=== PATIENT | male | born 1985 | race Caucasian/White ===

== ENCOUNTER 2025-02-08 23:51 | Emergency (ER) | payer OTHER, SELFPAY ==
[2025-02-09] VITALS: BP 152/112
[2025-02-09 00:10] VITALS: BP 142/82
--- NOTE | 2025-02-09 00:20 | ED.GENMED ---
History of Present Illness
<Moustapha Deutsch MD, Resident - Last Filed: 02/09/25 03:36>
General
Chief Complaint: Chest Pain
Time Seen by Provider: 02/09/25 00:04
History of Present Illness
History of Present Illness:
39 yo M no significant PMH presenting with chest pain. It is of pressure quality. First started in April/May 2024, that he noticed after his son 'jumped on him'. and it's been intermittent and the progressively becoming constant since then.
nonradiating pain. does not spread to jaw. does not spread to his back. no nausea/vomiting. pressure like quality. over past 3 weeks he feels that it has been getting worse. no relationship to exertion but notes possible relationship to when he
stretches his arm, he drives with left hand
he reports some dyspnea, no palpitations. no abdominal pain, no headaches. no focal weaknes or numbness.
family hx: father had NE at age 50 and 7 stents total
social hx unremarkable
denies any recent immobilization, travel, known history of malignancy
no fevers/chills
no hemoptysis
Past History
<Moustapha Deutsch MD, Resident - Last Filed: 02/09/25 03:36>
Social History
Tobacco: Non-smoker
Alcohol: Occasional
Drug: None
Review of Systems
<Moustapha Deutsch MD, Resident - Last Filed: 02/09/25 03:36>
Review of Systems
Constitutional: Reports no symptoms
EENT: Reports no symptoms
Respiratory: Reports no symptoms
Cardiac: Reports chest pain
ABD/GI: Reports no symptoms
: Reports no symptoms
Musculoskeletal: Reports no symptoms
Neurological: Reports no symptoms
Phy Exam
<Moustapha Deutsch MD, Resident - Last Filed: 02/09/25 03:36>
Physical Exam
Physical Exam:
VS BP 152/112; HR 81; T 98.7
General: no acute distress
CV: no murmurs, pain is reproducible when he stretches left arm out/backward
Pulm: CTAB
GI: + bowel sounds, no tenderness to palpation
Neuro: nonfocal
MSK: no lower extremity edema
Scores
<Moustapha Deutsch MD, Resident - Last Filed: 02/09/25 03:36>
Heart Score for Chest Pain Patients
STEMI patient?: No
History: Slightly or Non-Suspicious
ECG: Normal
Age: </= 45 years
Risk Factors: 1 or 2 Risk Factors
Troponin: </= Normal Limit
Heart Score for Chest Pain Patients: 1
Heart Score Risk: 2.5% MACE over next 6 weeks
Course
<Moustapha Deutsch MD, Resident - Last Filed: 02/09/25 03:36>
Orders/Labs/Results
Orders:
Orders
02/08/25 23:52
EKG [Electrocardiogram (*1)] Urgent
Reason for Study: Chest Pain
EKG- Treatment ONCE
02/09/25 00:27
CR Chest - 2 Views Urgent
Comment:
Reason For Exam: chest pain
02/09/25 00:33
Complete Blood Count/With Diff Urgent
Comprehensive Metabolic Panel Urgent
Troponin I Urgent
02/09/25 01:07
Ketorolac [Toradol] 15 mg IV NOW STA
02/09/25 02:11
Electrocardiogram (*1) Urgent
Reason for Study: Chest Pain
EKG- Treatment ONCE
02/09/25 02:26
D-Dimer Urgent
02/09/25 02:27
TSH Reflex To Free T4 Urgent
Troponin I Urgent
Abnormal Lab Results
02/09/25
00:33
Abs Immat Gran (auto) 0.1 H 10^3/uL
(0-0.05)
Absolute Lymphs (auto) 4.0 H 10^3/uL
(1.2-3.4)
ALT 62 H U/L
(0-50)
02/09/25 00:33
02/09/25 00:33
Vital Signs
Initial and Last Documented VS:
Initial Vital Signs
Temp Pulse Resp BP Pulse Ox
98.7 F 81 16 152/112 98
02/09/25 00:00 02/09/25 00:00 02/09/25 00:00 02/09/25 00:00 02/09/25 00:00
Last Documented Vital Signs
Temp Pulse Resp BP Pulse Ox
98.7 F 75 24 135/92 95
02/09/25 00:00 02/09/25 03:00 02/09/25 03:00 02/09/25 03:00 02/09/25 03:00
<Miguel Lopez, DO - Last Filed: 02/09/25 01:09>
Orders/Labs/Results
Orders:
Orders
02/08/25 23:52
EKG [Electrocardiogram (*1)] Urgent
Reason for Study: Chest Pain
EKG- Treatment ONCE
02/09/25 00:27
CR Chest - 2 Views Urgent
Comment:
Reason For Exam: chest pain
02/09/25 00:33
Complete Blood Count/With Diff Urgent
Comprehensive Metabolic Panel Urgent
Troponin I Urgent
02/09/25 01:07
Ketorolac [Toradol] 15 mg IV NOW STA
02/09/25 02:11
Electrocardiogram (*1) Urgent
Reason for Study: Chest Pain
EKG- Treatment ONCE
02/09/25 02:26
D-Dimer Urgent
02/09/25 02:27
TSH Reflex To Free T4 Urgent
Troponin I Urgent
Abnormal Lab Results
02/09/25
00:33
Abs Immat Gran (auto) 0.1 H 10^3/uL
(0-0.05)
Absolute Lymphs (auto) 4.0 H 10^3/uL
(1.2-3.4)
ALT 62 H U/L
(0-50)
02/09/25 00:33
02/09/25 00:33
Vital Signs
Initial and Last Documented VS:
Initial Vital Signs
Temp Pulse Resp BP Pulse Ox
98.7 F 81 16 152/112 98
02/09/25 00:00 02/09/25 00:00 02/09/25 00:00 02/09/25 00:00 02/09/25 00:00
Last Documented Vital Signs
Temp Pulse Resp BP Pulse Ox
98.7 F 75 24 135/92 95
02/09/25 00:00 02/09/25 03:00 02/09/25 03:00 02/09/25 03:00 02/09/25 03:00
<Moustapha Deutsch MD, Resident - Last Filed: 02/09/25 03:36>
MDM/Problems Addressed
Differential Diagnosis Includes:
msk strain, costochondritis, shingles, ACS, PE, aortic dissection
MDM/Problems Addressed:
39 yo M no significant PMH p/w chest pain ongoing for months, progrsesively getting worse.
does not appear to be angina. nonradiating, and does not spread to his jaw. does not spread to his back, which points away from dissection
HPI does not point towards a PE.
HPI is more c/w a msk strain-like etiology, but since family history noted father who had NE at age 50, will check cardiac labs
Plan:
CBC
CMP
CXR
Troponin x1
IV toradol 15mg once
Update:
CBC, CMP largely unremarkable
Troponin < 0.012
CXR on my read looks largely normal (no widened mediastinum)
Update:
patient reports that he experienced another episode of sharp chest pain while at rest, lasting < 1 minute
he also reports that the toradol did not really help
patient now clarifies that his mother has been diagnosed with 'rare clotting disorder'
repeat troponin
repeat EKG
d-dimer
TSH
Update:
D-dimer 0.29; normal
troponin #2 < 0.012; normal
patient is medically stable for discharge, and patient is okay to be discharged
<Moustapha Deutsch MD, Resident - Last Filed: 02/09/25 03:36>
*Pulse Oximetry
SaO2: 98
Oxygen Mode of Delivery: Room air
Patient hypoxic: no
*Critical Care Note
Total Time (30-74mins, 75-104mins- exclusive of procedures): Not Applicable
ED Attending Note
<Moustapha Deutsch MD, Resident - Last Filed: 02/09/25 03:36>
-
Portions of this chart may have been created with voice recognition software.� Occasional wrong word or��sound alike� substitutions may have occurred due to the inherent limitations of voice recognition software.
<Miguel Lopez, DO - Last Filed: 02/09/25 01:09>
ED Attending Note
Patient seen and examined by attending physician: Yes
I performed a history and physical exam of patient and discussed management with resident, I reviewed resident's note and agree with documented findings and plan of care.: Yes
ED Attending Note:
Seen with resident examined independently 39-year-old male presents with left-sided chest pain for months, worsened recently here he is afebrile, blood pressure is up a bit, chest x-ray noted troponin noted will try dose of Toradol repeat his blood
pressure
Discharge Plan
Departure
Patient Disposition: Home (Routine Discharge)
Date of Disposition: 02/09/25
Time of Disposition: 03:26
Patient with high blood pressure during this ER visit?: No
Condition: Good
Discharge Problem:
Chest pain
Instructions: Chest Pain CBC Follow Up
Referrals:
Shauna Weems DO [Family Provider, Internal Medicine] - Next open appointment
Mesfin Gilmore MD [Active, Cardiology] - Next open appointment
Interventions
Interventions:
*General Assessment Last Done: 02/09/25 00:00
*Neglect/Abuse Screening Last Done: 02/09/25 00:00
*ED COVID-19 Vaccine History Last Done: 02/09/25 00:23
*ED Influenza Vaccine History Last Done: 02/09/25 00:23
[facility] Fall Risk Assessment Tool Last Done: 02/09/25 00:13
*Risk Screen - Suicide (C-SSRS) Last Done: 02/09/25 00:00
ED- Cardiac Assessment Last Done: 02/09/25 00:23
Discharge Date and Time
Print Language: PASHTO
[2025-02-09 00:21] VITALS: BMI 33.7
[2025-02-09 00:53] LABS: ALT (SGPT) 62 U/L (0-50); AST (SGOT) 34 U/L (17-59); Albumin 4.9 g/dl (3.5-5.0); Alkaline Phosphatase 50 U/L (38-126); Blood Urea Nitrogen 18 mg/dl (9-20); Calcium 9.6 mg/dl (8.4-10.2); Carbon Dioxide 27 mmol/L (22-30); Chloride 102 mmol/L (98-107); Estimated Creatinine Clearance 103 ml/min; Glucose 90 mg/dl (70-99); Potassium 4.1 mmol/L (3.5-5.1); Sodium 138 mmol/L (135-145); Total Protein 7.8 g/dl (6.3-8.2); eGFR > 60.00
[2025-02-09 01:00] VITALS: BP 137/78
[2025-02-09 01:04] LABS: Hematocrit 44.7 % (39.0-52.0); Hemoglobin 15.6 g/dL (13.0-18.0); Mean Corp Hgb Conc. 34.9 g/dL (33.0-37.0); Mean Corpuscular Volume 84.8 fL (80.0-94.0); Nucleated Red Blood Cells % 0 % (-); Platelet Count 304 10^3/uL (130-400); Red Cell Dist. Width 12.8 % (11.5-14.5)
[2025-02-09 01:05] LABS: Troponin I < 0.012 ng/ml
[2025-02-09] MEDS: TORADOL 15 MG IV (01:28)
[2025-02-09 02:00] VITALS: BP 140/97
[2025-02-09 02:50] LABS: D-Dimer 0.29 ug/mlFEU (0.00-0.50)
[2025-02-09 03:00] VITALS: BP 135/92
[2025-02-09 03:27] LABS: Troponin I < 0.012 ng/ml
== END 2025-02-09 04:04 | disposition home or self-care (01) ==
LOC: EMR 23:51
PROVIDERS: EMERGENCY PHYSICIAN Emergency Medicine; FAMILY PHYSICIAN Internal Medicine
DX: R07.9 Chest pain, unspecified (principal); Z82.49 Family history of ischemic heart disease and other diseases of the circulatory system
CPT/HCPCS: 96374; 99285; 71046; 80053; 84443; 84484; 85025; 85379; 93005